=== PATIENT | male | born 1945 | race Caucasian/White ===

== ENCOUNTER 2024-12-08 06:40 | Day surgery (SDC) | payer MEDICARE, SELFPAY ==
[2024-12-08 08:20] VITALS: BMI 30.7
--- NOTE | 2024-12-08 10:16 | ITS.CL.CARDI ---
[employer] - Cardioversion
Cardioversion
Procedure Report:
Date of Procedure:
Procedure: Cardioversion
Indication: Symptomatic atrial fibrillation
Performing Physician: Daly Crespo MD
Technique: The patient was brought to the holding area. Signed informed consent was obtained. A time out was called and performed. The patient was anesthetized by the anesthesia service. Anticoagulation status was reviewed and appropriate. R2 pads
were placed anteriorly and posteriorly. A 200 J synchronized biphasic shock resulted in an initial 2:1 AV with HR in the 30's. This was followed by a marked sinus bradycardia with hypotension. Patient was administered 1 mg atropine. He subsequently
developed a junctional rhythm with HR in th 50's. His blood pressure remained steady while in the junctional rhythm. There were no complications.
Conclusion: S/P DCCV at 200 J with resultant junctional rhythm.
Recommendation: Discussed case with river rafting guide, Dr. Bach. Patient instructed to HOLD metoprolol and follow up in office later today for event monitor. Otherwise with follow routine post cardioversion care. Continue long lines operator anticoagulation.
== END 2024-12-08 10:19 | disposition home or self-care (01) ==
LOC: CATH 06:40
PROVIDERS: ATTENDING PHYSICIAN Internal Medicine Cardiovascular Disease; FAMILY PHYSICIAN Family Medicine
DX: I48.91 Unspecified atrial fibrillation (principal); I25.10 Atherosclerotic heart disease of native coronary artery without angina pectoris; E78.5 Hyperlipidemia, unspecified; Z79.01 Long term (current) use of anticoagulants; I10 Essential (primary) hypertension; R13.10 Dysphagia, unspecified
CPT/HCPCS: 92960; 93005

== ENCOUNTER 2024-12-11 17:03 | Inpatient (IN) | payer MEDICARE, SELFPAY ==
[2024-12-11] VITALS (9 sets, daily range): BP systolic 127–168; BP diastolic 68–93; BMI 30.2; BMI 29.7
--- NOTE | 2024-12-11 11:36 | ED.GENMED ---
History of Present Illness
General
Chief Complaint: Weakness
Time Seen by Provider: 12/11/24 11:36
History of Present Illness
History of Present Illness:
FOCUSED PAST MEDICAL HISTORY
- A-fib on Eliquis, high blood pressure, hyperlipidemia I reviewed records, the patient had a cardioversion for symptomatic A-fib
REVIEW OF OLD RECORDS
- I reviewed records, the patient had a cardioversion 12/08/2024 in which he went from A-fib to 2-1 block with heart rates in the 30s and was given atropine then went into a junctional rhythm with heart rate in the 50s
Note:
CHIEF COMPLAINT(S)
Post-cardioversion weakness, lower extremity swelling, and dyspnea on exertion.
HISTORY OF PRESENT ILLNESS
The patient is a 79-year-old male with a medical history significant for cardiac conditions and recent bullous pemphigoid diagnosis, presenting with weakness, bilateral lower extremity swelling, and shortness of breath on exertion following a
cardioversion procedure last . The patient reports feeling unwell immediately after discharge from the hospital. He began ex to periencing shaking and vomiting two days after the procedure. He also describes significant fatigue and weakness,
stating, 'All he wants to do is sleep,' and has difficulty with simple tasks like combing hair or putting on shoes due to breathlessness. The patient mentions using a walker for ambulation due to being easily fatigued, describing his breathlessness
when moving from the bedroom to the kitchen.
After the cardioversion, Dr. Crespo performed the procedure, which has led to worsened symptoms, particularly after discontinuation of furosemide on the dermatologists recommendation due to potential interactions with Dupilumab, which he is using
for bullous pemphigoid. The furosemide was stopped nearly two months prior to this visit. Since cessation, the patient reports worsening edema and increased swelling after the recent cardioversion, despite continuing spironolactone. The patient
notes he feels weak overall, stating, 'The whole body is weak,' and describes experiencing dry heaves and occasional crackling in his lungs, although the lungs sound fairly clear upon examination. The patients oxygen saturation is at 98%.
PHYSICAL EXAM
General: Alert, no acute distress. Moderate weakness noted.
Skin: Warm, dry, moderate findings of bullous pemphigoid with lesions noted on the anterior chest and possible burn component.
Head: Normocephalic, atraumatic.
Neck: Supple, trachea midline.
Eye Ears, nose, mouth and throat: Oral mucosa moist.
Cardiovascular: Normal peripheral perfusion, no edema. Regular rhythm
Respiratory: Respirations are non-labored. Occasional crackling heard upon examination.
Gastrointestinal: Abdomen nondistended.
Back: Normal range of motion, normal alignment.
Musculoskeletal: Significant left greater than right lower extremity edema
Psychiatric: Cooperative, appropriate mood and affect.
PROBLEM LIST
- Acute: Weakness, bilateral lower extremity edema, dyspnea on exertion, post-cardioversion symptoms.
- Chronic: Bullous pemphigoid.
PLAN
1. Obtain blood work to assess the patients current status post-cardioversion.
2. Conduct a chest X-ray to evaluate the respiratory symptoms and detect any potential pulmonary issues.
3. Investigate further the management of bullous pemphigoid and the potential interaction of medications affecting the patients condition.
4. Communicate with cardiology for follow-up, particularly to address the symptoms exacerbated by the cardioversion procedure. No immediate response with from Dr. Crespo.
DIFFERENTIAL DIAGNOSIS
The Differential Diagnosis includes, in no particular order and is not limited to:
1. Heart failure exacerbation
2. Adverse reaction post-cardioversion
3. Medication interaction effect
4. Chronic obstructive pulmonary disease (COPD) exacerbation
5. Pulmonary edema
6. Deep vein thrombosis leading to added swelling
7. Previous or ongoing myocardial infarction
8. Pneumonia or other respiratory infection
9. Peripheral vascular disease
10. Drug-induced edema
RADIOLOGY
- Suspect sinus 60 right axis deviation, right bundle branch block
EKG
- Suspect sinus, rate of 60, right bundle branch block unchanged from prior, prior EKG appears to be more consistent with junctional but appears to be sinus currently
LABS
- White count normal, hemoglobin 11.1, total bili 2.5, troponin 0.040 of uncertain significance, BNP 952 with no old to compare
UPDATE
- I sent message to Dr. Cortez was no initial response
SUMMARY OF ENCOUNTER
The patient, a 79-year-old male, presented with post-cardioversion symptoms including weakness, shaking, and dyspnea on exertion. He reports using a walker due to significant fatigue and breathlessness, stating that he can only walk short distances
before becoming unsteady. Currently on apixaban 5 mg twice daily for anticoagulation due to a history of pulmonary embolism. Despite excellent oxygen saturation levels at 99%, the patients family expresses concern about his ability to manage
independently at home due to these symptoms. A possible link between anxiety and shaking was discussed, though further evaluation is needed. Concerns about a history of bullous pemphigoid and an ongoing cardiac evaluation with a cardiac device were
also noted.
DISPOSITION
The patients family expressed a desire for hospital admission due to concerns about the patients ability to manage at home. It was noted that the decision for admission would involve discussing the case with the hospitalist to evaluate if inpatient
care was warranted.
ASSESSMENT
The patient is experiencing potential anxiety-related symptoms contributing to his shaking and dyspnea on exertion. His current medication regimen and excellent oxygen levels suggest low probability of a new thromboembolic event. The family is
concerned about his safety and ability to care for himself at home, prompting evaluation for possible admission.
MANAGEMENT OF THE PATIENTS CARE WAS DISCUSSED WITH
The case was proposed to be discussed with the hospitalist team to assess the need for hospitalization based on the current medical evaluation and family concerns.
PLAN
Review any records from the patients cardiology and dermatology teams that might provide further insight into his conditions. Discuss potential for admission with the hospitalist team given family concerns, despite current medical evaluation not
indicating immediate necessity.
MEDICATION RECONCILIATION
- Apixaban (Eliquis) 5 mg, taken twice daily.
MEDICAL DECISION MAKING
-Complexity of Data Reviewed: Chronic conditions affecting care [history of pulmonary embolism, bullous pemphigoid, and recent cardioversion]. Differential diagnosis considered includes heart failure exacerbation, adverse reaction
post-cardioversion, medication interaction effect, COPD exacerbation, pulmonary edema, deep vein thrombosis, ongoing myocardial infarction, respiratory infection, peripheral vascular disease, and drug-induced edema.
-Data:
Category 1
No external records were reviewed during this encounter. The patient reported on his use of a cardiac device purchased recently, though not yet operational.
Category 2
Information gathered from patients family regarding concerns about safety and ability of the patient to manage activities of daily living.
Category 3
Discussion with the hospitalist team was planned to determine the necessity of admission based on current medical evaluation and family concerns.
-Risk:
Prescription medication was already being managed for anticoagulation with apixaban (Eliquis). Safety of the patient at home is of concern, potentially influenced by social determinants of health including availability of family support and home
environment.
DIAGNOSIS
- Post cardioversion weakness and dyspnea (ICD-10: R53.1)
- Bullous pemphigoid (ICD-10: L12.0)
- Anxiety (unspecified) potentially contributing to symptoms (ICD-10: F41.9)
Consider discharge but is very adamant that he not be returned home. He reports severe shakiness with exertion to the point that he may fall. He has worsening lower extremity edema.
Phy Exam
Physical Exam
Physical Exam:
See HPI
Course
Orders/Labs/Results
Orders:
Orders
12/11/24 10:48
EKG [Electrocardiogram (*1)] Urgent
Reason for Study: Shortness of Breath
EKG- Treatment ONCE
12/11/24 11:58
Complete Blood Count/With Diff Urgent
Comprehensive Metabolic Panel Urgent
Lipase Urgent
NT-proBNP Urgent
Troponin I Urgent
12/11/24 12:05
CR Chest - 2 Views Urgent
Comment:
Reason For Exam: sob
12/11/24 13:49
Add On- LAB Urgent
Tests Added?: bnp
Abnormal Lab Results
12/11/24
11:58
RBC 3.62 L 10^6/uL
(4.70-6.10)
Hgb 11.1 L g/dL
(13.0-18.0)
Hct 34.4 L %
(39.0-52.0)
MCV 95.0 H fL
(80.0-94.0)
MCHC 32.3 L g/dL
(33.0-37.0)
RDW 17.3 H %
(11.5-14.5)
MPV 10.7 H fL
(7.4-10.4)
Total Bilirubin 2.5 H mg/dl
(0.2-1.3)
Troponin I 0.040 H* ng/ml
12/11/24 11:58
12/11/24 11:58
Vital Signs
Initial and Last Documented VS:
Initial Vital Signs
Temp Pulse Resp BP Pulse Ox
36.9 C 65 18 154/87 98
12/11/24 10:48 12/11/24 10:48 12/11/24 10:48 12/11/24 10:48 12/11/24 10:48
Last Documented Vital Signs
Temp Pulse Resp BP Pulse Ox
36.9 C 52 15 145/68 97
12/11/24 10:48 12/11/24 14:00 12/11/24 14:00 12/11/24 12:00 12/11/24 11:48
*Pulse Oximetry
SaO2: 98
Oxygen Mode of Delivery: Room air
Patient hypoxic: no
*Critical Care Note
Total Time (30-74mins, 75-104mins- exclusive of procedures): Not Applicable
ED Attending Note
-
Portions of this chart may have been created with voice recognition software.� Occasional wrong word or��sound alike� substitutions may have occurred due to the inherent limitations of voice recognition software.
Discharge Plan
Departure
Patient Disposition: Admit
Date of Disposition: 12/11/24
Time of Disposition: 13:47
Presentation/result/management discussed w/ accepting MD/DO: Hospitalist
Discharge Problem:
Weakness
Prescriptions:
No Action
amiodarone 200 mg Tablet
200 mg PO BID
leflunomide 10 mg Tablet
10 mg PO DAILY
spironolactone 25 mg Tablet
25 mg PO DAILY
dapsone 25 mg Tablet
25 mg PO DAILY
dapsone 25 mg Tablet
50 mg PO QPM
doxycycline hyclate 100 mg Tablet
100 mg PO BID
Eliquis 5 mg Tablet
5 mg PO BID
dapagliflozin propanediol [Farxiga] 10 mg Tablet
5 mg PO DAILY
dupilumab 300 mg/2 mL Pen Injector
300 mg SC QWEEK
Referrals:
Ajit Houston MD [Family Provider, Family Practice]
Interventions
Interventions:
*Risk Screen - Suicide Last Done: 12/11/24 10:48
*General Assessment Last Done: 12/11/24 10:48
*Neglect/Abuse Screening Last Done: 12/11/24 10:48
*ED- Fall Risk Assessment Last Done: 12/11/24 10:48
*ED COVID-19 Vaccine History Last Done: 12/11/24 10:48
*ED Influenza Vaccine History Last Done: 12/11/24 10:48
ED- Cardiac Assessment Last Done: 12/11/24 11:48
ED- Neurological Assessment Last Done: 12/11/24 11:48
ED- Pulmonary Assessment Last Done: 12/11/24 11:48
Discharge Date and Time
Print Language: MOLDOVAN
[2024-12-11 12:15] LABS: Hematocrit 34.4 % (39.0-52.0); Hemoglobin 11.1 g/dL (13.0-18.0); Mean Corp Hgb Conc. 32.3 g/dL (33.0-37.0); Mean Corpuscular Volume 95.0 fL (80.0-94.0); Nucleated Red Blood Cells % 0 % (-); Platelet Count 219 10^3/uL (130-400); Red Cell Dist. Width 17.3 % (11.5-14.5)
[2024-12-11 12:38] LABS: ALT (SGPT) 22 U/L (0-50); AST (SGOT) 31 U/L (17-59); Albumin 3.7 g/dl (3.5-5.0); Alkaline Phosphatase 120 U/L (38-126); Blood Urea Nitrogen 16 mg/dl (9-20); Calcium 9.2 mg/dl (8.4-10.2); Carbon Dioxide 25 mmol/L (22-30); Chloride 106 mmol/L (98-107); Estimated Creatinine Clearance 77 ml/min; Glucose 91 mg/dl (70-99); Lipase 121 U/L (23-300); Potassium 4.1 mmol/L (3.5-5.1); Sodium 135 mmol/L (135-145); Total Protein 6.5 g/dl (6.3-8.2); eGFR > 60.00
[2024-12-11 12:49] LABS: Troponin I 0.040 ng/ml
--- NOTE | 2024-12-11 13:56 | HPS.HSE ---
Addendum entered and electronically signed by Evelyne De La Garza MD 12/11/24 16:19:
This is an addendum to H&P written by Regulo Murdock on 12/11/2024. �Patient seen and examined independently with resident.
79-year-old male past medical history of CAD, atrial fibrillation on Eliquis status post recent cardioversion on 12/08, CHF, hypertension, hyperlipidemia, bullous pemphigoid, lumbar spondylosis, pulmonary embolism 5 years ago, presenting with
weakness, bilateral lower extremity swelling and shortness of breath following recent cardioversion on 12/08. �Associate with shakiness and vomiting, fatigue and weakness and dizziness and sleeping a lot. �Symptoms more so with exertion. �Also with
difficulty swallowing solids and food getting stuck in his throat. �Cardioversion was performed by Dr. Crespo.
Bullous pemphigoid is improved compared to previous at this time.
Lasix was stopped 2 months ago by recommendation of switchbox assembler due to interaction with dupilumab which he takes for bullous pemphigoid.
Patient had cardioversion on 12/08 and went into atrial fibrillation with 2-1 block with heart rate in the 30s followed by marked sinus bradycardia with hypotension. �Patient was given 1 mg of atropine and subsequently developed junctional rhythm
with heart rate in the 50s.
Vital signs unremarkable. �O2 saturation 98%.
Labs show hemoglobin 11.1. �Troponin of 0.04. �Cardiac BNP 950. �Chest x-ray shows no acute cardiopulmonary abnormality. �EKG shows wide QRS likely� from right bundle branch block which appears to be present from 12/08 (unknown if new) vs possible
junctional rhythm (although p waves likely present but poor quality due to possible shaking).�
Unclear etiology of symptoms, possibly could be secondary to ongoing junctional rythmn vs CHF as a result of cardioversion. �Cardiology consulted. �Check speech and swallow evaluation. �Patient reports that the bolus pemphigoid in the left lower
extremity has improved so doubt acute infection.�
Dysphagia could be esophageal spasm or nerve injury from cardioversion.�
Original Note:
Family Physician
-
Family Physician: Ajit Houston
Chief Complaint
-
Lower extremity swelling, dyspnea on exertion, weakness
History of Present Illness
79-year-old male with past medical history of paroxysmal A-fib s/p cardioversion 12/08/2024, essential hypertension, CHF, hyperlipidemia, bullous pemphigoid, DVT/PE, presenting to the ER reporting lower extremity swelling, dyspnea on exertion,
generalized weakness, dry heaves and has been ongoing for some time, and they have worsened the past couple of days. Patient is s/p cardioversion for A-fib, done on 12/08/[address] Crsepo. All the above symptoms have been accompanied by
nausea/vomiting, generalized weakness and he is not able to eat anything because of loss of appetite, episodes of lightheadedness/dizziness without loss of consciousness. He also had headaches.
Patient was diagnosed with bullous pemphigoid early May 2024, since then his furosemide was discontinued due to interaction with dupilumab. His metoprolol was also discontinued after cardioversion (had sinus bradycardia with hypotension and was
administered 1 mg atropine after the procedure), subsequently developed junctional rhythm with heart rates in 50s.
ED course�initial vital signs at presentation pulse�65, BP�150/87. Labs�normal white count, hemoglobin 11.1, total bili 2.5, troponin 0.040, BNP 952.
Medical History
Past Medical History
Past Medical History: Reports Other (Coronary artery disease, bullous pemphigoid, paroxysmal A-fib s/p cardioversion, spondylolisthesis, CHF)
Past Surgical History: Reports Other (Lumbar surgery,)
Social History
Tobacco: Non-smoker
Alcohol: None
Drug: None
Personal:
Living: With Family
Employment: Retired
Family History
Family History: Not pertinent
Allergies / Home Medications
Allergies reflects when Allergies were last updated in [employer]
Home Medications with original date entered in [employer]
Allergy/Medication List:
Allergies
Allergy/AdvReac Type Severity Reaction Status Date / Time
adhesive tape Allergy blisters Verified 12/11/24 10:47
furosemide Allergy nausea & Verified 12/11/24 10:47
vomiting
ibuprofen (From Advil) Allergy throat Verified 12/11/24 10:47
swelling
naproxen (From Aleve) Allergy throat Verified 12/11/24 10:47
swelling
Penicillins Allergy Itching Verified 12/11/24 10:47
Home Medications
amiodarone 200 mg tablet 200 mg PO BID 12/08/24
apixaban 5 mg tablet (Eliquis) 5 mg PO BID 12/08/24
dapagliflozin propanediol 10 mg tablet (Farxiga) 5 mg PO DAILY 12/08/24
dapsone 25 mg tablet 25 mg PO DAILY 12/08/24
dapsone 25 mg tablet 50 mg PO QPM 12/08/24
doxycycline hyclate 100 mg tablet 100 mg PO BID 12/08/24
dupilumab 300 mg/2 mL subcutaneous pen injector 300 mg SC QWEEK 12/08/24
leflunomide 10 mg tablet 10 mg PO DAILY 12/08/24
spironolactone 25 mg tablet 25 mg PO DAILY 12/08/24
Review of Systems
-
A 12 point ROS was completed and negative except as noted: Yes
Physical Exam
Vital Signs
Vital Signs
Temp Pulse Resp BP Pulse Ox
98.4 F 68 14 145/68 97
12/11/24 10:48 12/11/24 13:30 12/11/24 13:30 12/11/24 12:00 12/11/24 11:48
Physical Exam
General: No Apparent Distress
HEENT: NormoCephalic and Atraumatic
Respiratory: Clear
Cardiac: S1/S2 and Regular Rhythm; No Murmur
GI: Soft
Musculoskeletal: Edema, Left Lower Extremity and Edema, Right Lower Extremity
Skin: Warm and Other (Left lower extremity- chronic wounds, raw surface area from ruptured blisters and bullous pemphigoid, blistering lesions on the right lower extremity.)
Neuro: Awake, Alert, Oriented and AO x 3
Psych: Calm
Laboratory Results
-
12/11/24 11:58
12/11/24 11:58
Laboratory Results
Total Bilirubin 2.5 mg/dl (0.2-1.3) H 12/11/24 11:58
AST 31 U/L (17-59) 12/11/24 11:58
ALT 22 U/L (0-50) 12/11/24 11:58
Alkaline Phosphatase 120 U/L (38-126) 12/11/24 11:58
Troponin I 0.040 ng/ml H* 12/11/24 11:58
Lipase 121 U/L (23-300) 12/11/24 11:58
Impression/Plan
-
IMPRESSION:
79-year-old male presenting with worsening lower extremity edema, SOB, generalized weakness s/p cardioversion for A-fib on 12/08/2024
PLAN:
#SOB
#Worsening lower extremity edema
BNP�952, troponins�0.040
Vitals stable, patient on room air.
Patient appears volume overloaded , but lungs are clear
Etiology likely due to acute exacerbation of CHF versus arrhythmia versus post cardioversion complication.
Some of his symptoms like shortness of breath, tremors might also be related to anxiety from all his chronic conditions, as reported by the patient/ that were difficult to be managed at home.
Cardiology consulted
Will check echo
Will repeat EKG
Monitor I/os, weights
#CHF, acute on chronic
Patient is not on complete GDMT except for dapagliflozin, spironolactone
His metoprolol was discontinued after cardioversion, due to his low rate
Continue dapagliflozin, spironolactone
Consult cardiology
#Bullous pemphigoid
Continue dapsone
Continue doxycycline
Continue to dupilumab
Continue leflunomide
#Paroxysmal A-fib
S/p cardioversion
Continue amiodarone
Continue apixaban
Metoprolol on hold
#Dysphagia
Will do swallow evaluation
Patient has not been eating well, decreased appetite
Diet pending swallow evaluation
#Chronic wounds on the left lower extremity
From bullous pemphigoid
Wound care
#Chronic anemia
Will monitor for now
#Elevated troponin
Likely due to status post cardioversion
Diet�pending swallow evaluation
DVT prophylaxis�Eliquis
Full code
--- NOTE | 2024-12-11 18:20 | EDCM ---
CM reviewed chart and met with pt and family bedside in ED. Pt lives with his in 1 story home, [address].
Needs assistance with ADLs, independent in personal care, ambulates with RW.
Confirms prescription coverage.
Current with [facility] for wound care, has been to [facility], [facility] in past.
PCP: Ajit Houston
Pharmacy: [facility] [address] [place]
Await PT eval and recommendations, CM will continue to follow for all discharge planning needs.
[2024-12-11] MEDS: ELIQUIS 5 MG PO (20:33)
[2024-12-11] MEDS: PACERONE 200 MG PO (21:45)
[2024-12-11] MEDS: DAPSONE 50 MG PO (21:45)
[2024-12-11] MEDS: VIBRAMYCIN 100 MG PO (21:45)
[2024-12-12 03:18] VITALS: BP 130/56
[2024-12-12 06:00] VITALS: BMI 29.6
[2024-12-12 07:08] VITALS: BP 138/66
[2024-12-12] MEDS: ELIQUIS 5 MG PO ×2 (07:48→21:00)
[2024-12-12] MEDS: VIBRAMYCIN 100 MG PO ×2 (07:48→21:00)
[2024-12-12] MEDS: ALDACTONE 25 MG PO (07:49)
[2024-12-12] MEDS: FARXIGA 5 MG PO (07:49)
[2024-12-12] MEDS: PACERONE 200 MG PO ×2 (07:49→21:01)
[2024-12-12] MEDS: DAPSONE 25 MG PO (07:50)
[2024-12-12 09:17] LABS: Hematocrit 38.1 % (39.0-52.0); Hemoglobin 11.7 g/dL (13.0-18.0); Mean Corp Hgb Conc. 30.7 g/dL (33.0-37.0); Mean Corpuscular Volume 98.7 fL (80.0-94.0); Nucleated Red Blood Cells % 0.3 % (-); Platelet Count 211 10^3/uL (130-400); Red Cell Dist. Width 17.6 % (11.5-14.5)
[2024-12-12 10:04] LABS: ALT (SGPT) 22 U/L (0-50); AST (SGOT) 36 U/L (17-59); Albumin 3.8 g/dl (3.5-5.0); Alkaline Phosphatase 106 U/L (38-126); Blood Urea Nitrogen 14 mg/dl (9-20); Calcium 9.2 mg/dl (8.4-10.2); Carbon Dioxide 21 mmol/L (22-30); Chloride 107 mmol/L (98-107); Estimated Creatinine Clearance 77 ml/min; Glucose 106 mg/dl (70-99); Potassium 3.9 mmol/L (3.5-5.1); Sodium 136 mmol/L (135-145); Total Protein 6.5 g/dl (6.3-8.2); eGFR > 60.00
[2024-12-12 10:07] LABS: Troponin I 0.050 ng/ml
[2024-12-12 11:00] VITALS: BP 135/81
--- NOTE | 2024-12-12 14:03 | W.PN.HOSP.TC ---
Today's Communication/Plan
-
Monitor vital signs and see plan
Cardiology to evaluate
Speech evaluation
wound care
Assessment / Plan
Assessment / Plan
General: No Apparent Distress
HEENT: NormoCephalic and Atraumatic
Respiratory: Clear
Cardiac: S1/S2 and Regular Rhythm; No Murmur
GI: Soft
Musculoskeletal: Edema, Left Lower Extremity and Edema, Right Lower Extremity
Skin: Warm and Other (Left lower extremity- chronic wounds, raw surface area from ruptured blisters and bullous pemphigoid, blistering lesions on the right lower extremity.)
Neuro: Awake, Alert, Oriented and AO x 3
Psych: Calm
SOB
#Worsening lower extremity edema
BNP�952, troponins�0.040
Vitals stable, patient on room air.
Patient appears volume overloaded , but lungs are clear
Etiology likely due to arrhythmia versus post cardioversion complication.
Some of his symptoms like shortness of breath, tremors might also be related to anxiety from all his chronic conditions, as reported by the patient/ that were difficult to be managed at home.
Cardiology consulted
check echo
Monitor I/os, weights
#CHF, chronic
Patient is not on complete GDMT except for dapagliflozin, spironolactone
His metoprolol was discontinued after cardioversion, due to his low rate
Continue dapagliflozin, spironolactone
Consult cardiology
#Bullous pemphigoid
Continue dapsone
Continue doxycycline
Continue to dupilumab
Continue leflunomide
#Paroxysmal A-fib
S/p cardioversion
Continue amiodarone
Continue apixaban
Metoprolol on hold
#Dysphagia
Speech evaluation
Patient has not been eating well, decreased appetite
#Chronic wounds on the left lower extremity
From bullous pemphigoid
Wound care
#Chronic anemia
Will monitor for now
#Elevated troponin likely nonischemic myocardial injury
Likely due to status post cardioversion
DVT prophylaxis�Eliquis
Full code
I spent a total of 52 minutes with the patient or on the floor. More than 50% of this time involved counseling and coordination of care.
Anticipated Discharge: 24 - 48 hours
Subjective/Interval History
-
Date of Service: December 12, 2024
denies pain
Objective Data
-
Labs:
Laboratory Results
12/12/24
09:08
WBC 6.6
Hgb 11.7 L
Hct 38.1 L
Plt Count 211
Sodium 136
Potassium 3.9
Chloride 107
Carbon Dioxide 21 L
BUN 14
Creatinine 0.9
Glucose 106 H
Calcium 9.2
Total Bilirubin 2.3 H
AST 36
ALT 22
Alkaline Phosphatase 106
Vital Signs:
Vital Signs
Temp Pulse Resp BP Pulse Ox
98.2 F 118 16 135/81 98
12/12/24 11:00 12/12/24 11:00 12/12/24 11:00 12/12/24 11:00 12/12/24 11:00
--- NOTE | 2024-12-12 15:41 | CON.CAR ---
Addendum entered and electronically signed by Laila Randolph DO 12/12/24 21:43:
I saw and examined the patient.
The Sulky Driver's note was reviewed and I agree with the note.
Comment: Patient came to the ER with complaints of increasing SOB and was admitted with acute HF with cardiology consulted. Patient just had a successful outpatient CV for paroxysmal A-fib with yazdanism of SR on 12/08/2024. Patient has Bullous
pemphigoid with slowly healing LLE wound receiving wound care and followed by [facility]. Patient is not chronically on a diuretic. Patient says that despite yazdanism of sinus rhythm he never had a symptomatic improvement and then started
with shaking type chills and vomiting this past weekend and fatigue. He has been compliant with Eliquis and denies bleeding or falls on OAC. raised concerns about increased anxiety Ed has about hs health issues.
General: No acute distress, AAOX3
Heart: irregularly irregular, positive S1/S2, 1/6 SM
Lungs: Bronchovesicular breath sounds decreased but clear
Abd: Positive BS, NT/ND, neg rebound/rigidity/guarding
Ext: Chronic venous stasis changes. Left lower extremity with Bullous pemphigoid changes
Plan:
79-year-old gentleman with ongoing fatigue/weakness who reports months of shaking chills without fever, lightheadedness and shortness of breath as well as ambulatory dysfunction
-he has a history of atrial fibrillation underwent DC cardioversion 12/05/2024.
-It appears that he is back in atrial fibrillation. Will continue uninterrupted anticoagulation and new start amiodarone
-Check 2D echocardiogram
-proBNP mildly elevated at 952; will try small dose of Bumex as patient reports history of nausea with furosemide
-Monitor blood pressure trends and check orthostatic vitals
-Mildly abnormal cardiac troponin likely related to recent cardioversion; doubt ACS. However given risk factors patient may benefit from outpatient ischemic evaluation
-PT OT
-Wound care consulted
Original Note:
Consultation
Consultation Request
Date/Time Consultation Performed: 12/12/2024
Requesting Provider: Dr. Busby
Performing Provider: Dr. Randolph
Reason for Consultation: Acute HF, orthostasis
Medical History
-
History of Present Illness:
Patient came to the ER with complaints of increasing SOB and was admitted with acute HF with cardiology consulted. Patient just had a successful outpatient CV for paroxysmal A-fib with yazdanism of SR on 12/08/2024. Patient had increased LE
edema when he was seen in the cardiology office on 12/05/2024. Patient is not chronically on a diuretic. Patient says that despite yazdanism of sinus rhythm he never had a symptomatic improvement and then started with shaking type chills and
vomiting this past weekend and fatigue. He came to the ER with ongoing symptoms and the proBNP was only 952 without obvious CHF on CXR, but LE edema persists. No previous echo.
PMH:
Paroxysmal atrial fibrillation
s/p successful CV 12/08/2024
Appears to be back in A-fib by ECG 12/12/2024
Chronic Eliquis OAC
Bullous pemphigoid with slowly healing LLE wound
Past Medical History
Past Medical History: Other (In HPI)
Past Surgical History: Other (In HPI)
Social History
Tobacco: Former Smoker
Alcohol: Occasional
Drug: None
Personal:
Living: With Family
Family History
Family History: Other (CVA)
Allergies / Home Medications
Allergy/AdvReac Type Severity Reaction Status Date / Time
adhesive tape Allergy blisters Verified 12/11/24 10:47
furosemide Allergy nausea & Verified 12/11/24 10:47
vomiting
ibuprofen (From Advil) Allergy throat Verified 12/11/24 10:47
swelling
naproxen (From Aleve) Allergy throat Verified 12/11/24 10:47
swelling
Penicillins Allergy Itching Verified 12/11/24 10:47
�Medication �Instructions �Recorded �Confirmed �Type
amiodarone 200 mg tablet 200 mg PO BID Heart 12/08/24 12/11/24 History
Disease/Condition
apixaban 5 mg tablet (Eliquis) 5 mg PO BID Blood Clot 12/08/24 12/11/24 History
Prevention/Tx
dapagliflozin propanediol 10 mg 5 mg PO DAILY Diabetes 12/08/24 12/11/24 History
tablet (Farxiga)
dapsone 25 mg tablet 25 mg PO DAILY Infection 12/08/24 12/11/24 History
dapsone 25 mg tablet 50 mg PO QPM Infection 12/08/24 12/11/24 History
doxycycline hyclate 100 mg tablet 100 mg PO BID Infection 12/08/24 12/11/24 History
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
pen injector disorder
leflunomide 10 mg tablet 10 mg PO DAILY autoimmune skin 12/08/24 12/11/24 History
disorder
spironolactone 25 mg tablet 25 mg PO DAILY 12/08/24 12/11/24 History
Review of Systems
-
History Source: Patient and Family (Most of the HPI questions were answered by his who is sitting bedside)
All other systems: Negative unless noted
Physical Exam
Vital Signs
Temp Pulse Resp BP Pulse Ox
98.2 F 118 16 135/81 98
12/12/24 11:00 12/12/24 11:00 12/12/24 11:00 12/12/24 11:00 12/12/24 11:00
GEN: NAD, AAO x 3
HEENT: EOMI, MMM
LUNGS: RA. CTA B/L no audible wheeze
CV: A-fib on telemetry. Irreg, S1/S2, no murmur
ABD: ND
EXT: +2 B/L LE edema
NEURO: Gross non-focal
SKIN: No rash
Lab Results
12/12/24 09:08
12/12/24 09:08
Troponin I 0.050 ng/ml H* 12/12/24 09:33
[id number] Pept 952 pg/ml 12/11/24 11:58
Impression / Plan
-
PCP: Dr. Ajit Houston
Cardiology: Dr. Bach
Impression:
Admitted with SOB and possible acute HF 12/11/2024
Elevated troponin
Acute HFpEF
Paroxysmal atrial fibrillation
s/p successful CV 12/08/2024
Appears to be back in A-fib by ECG 12/12/2024
Chronic Eliquis OAC
Bullous pemphigoid with slowly healing LLE wound
Echo 12/12/2024: Study pending
Plan:
Patient came to the ER with complaints of increasing SOB and was admitted with acute HF with cardiology consulted. Patient just had a successful outpatient CV for paroxysmal A-fib with yazdanism of SR on 12/08/2024. Patient had increased LE
edema when he was seen in the cardiology office on 12/05/2024. Patient is not chronically on a diuretic. Patient says that despite yazdanism of sinus rhythm he never had a symptomatic improvement and then started with shaking type chills and
vomiting this past weekend and fatigue. He came to the ER with ongoing symptoms and the proBNP was only 952 without obvious CHF on CXR, but LE edema persists. No previous echo.
-ECG reviewed by me looks like A-fib
-Patient admitted with suspected acute HF, but no evidence of diuresis thus far. Will try dose of Bumex 0.5 mg IV x 1 now, patient reports an allergy to furosemide of nausea and vomit. Patient was not taking loop diuretic prior to admission.
Pending diuretic response will order a daily dose of Lasix IV starting 12/13/2024
-Patient has been normotensive thus far
-Check echo
-Pending results of echo and diuresis patient should be started on a more intensive GDMT regimen for CHF
-Initial troponin was 0.04 and then up a bit at 0.05. Recheck troponin in a.m., ordered by me. This could be due to acute HF and recent CV, will manage as a nonischemic myocardial injury troponin elevation.
-ECG looks like A-fib despite recent successful CV and ongoing AAD with amiodarone 200 mg BID. Patient describes feeling worse following CV. Continue amiodarone as is for now
-Continue Eliquis 5 mg BID without interruption given recent CV
-The wound care nurse has been consulted for his LLE wound
-PT/OT ordered by me
[2024-12-12] MEDS: DAPSONE 50 MG PO (17:00)
[2024-12-12] MEDS: BUMEX 0.5 MG IV (17:00)
[2024-12-12 17:18] VITALS: BP 123/79
[2024-12-12 23:33] VITALS: BP 104/71
[2024-12-13] VITALS (7 sets, daily range): BP systolic 99–155; BP diastolic 64–99; PULSE 114–118; O2SAT 98
[2024-12-13] MEDS: FARXIGA 5 MG PO (07:56)
[2024-12-13] MEDS: ALDACTONE 25 MG PO (07:57)
[2024-12-13] MEDS: VIBRAMYCIN 100 MG PO ×2 (07:57→20:33)
[2024-12-13] MEDS: PACERONE 200 MG PO ×2 (07:58→20:37)
[2024-12-13] MEDS: ELIQUIS 5 MG PO ×2 (07:58→20:33)
[2024-12-13] MEDS: DAPSONE 25 MG PO (07:58)
[2024-12-13 08:40] LABS: Hematocrit 37.6 % (39.0-52.0); Hemoglobin 12.5 g/dL (13.0-18.0); Mean Corp Hgb Conc. 33.2 g/dL (33.0-37.0); Mean Corpuscular Volume 94.9 fL (80.0-94.0); Nucleated Red Blood Cells % 0 % (-); Platelet Count 232 10^3/uL (130-400); Red Cell Dist. Width 17.4 % (11.5-14.5)
[2024-12-13 09:09] LABS: Troponin I 0.038 ng/ml
[2024-12-13 09:45] LABS: ALT (SGPT) 24 U/L (0-50); AST (SGOT) 35 U/L (17-59); Albumin 3.8 g/dl (3.5-5.0); Alkaline Phosphatase 122 U/L (38-126); Blood Urea Nitrogen 13 mg/dl (9-20); Calcium 9.2 mg/dl (8.4-10.2); Carbon Dioxide 21 mmol/L (22-30); Chloride 107 mmol/L (98-107); Estimated Creatinine Clearance 70 ml/min; Glucose 139 mg/dl (70-99); Potassium 4.1 mmol/L (3.5-5.1); Sodium 136 mmol/L (135-145); Total Protein 6.6 g/dl (6.3-8.2); eGFR > 60.00
--- NOTE | 2024-12-13 12:42 | WOUNDNOTE ---
L MEDIAL LOWER LEG
--- NOTE | 2024-12-13 12:43 | WOUNDNOTE ---
L MEDIAL LOWER LEG BLISTER
--- NOTE | 2024-12-13 12:44 | WOUNDNOTE ---
L LATERAL LOWER LEG
--- NOTE | 2024-12-13 12:45 | WOUNDNOTE ---
[facility] RN note: Patient admitted with weakness.
See H&P for complete history. Lives with at home.
PMH: 79-year-old male past medical history of CAD, atrial fibrillation on Eliquis status post recent cardioversion on 12/08, CHF, hypertension, hyperlipidemia, bullous pemphigoid, lumbar spondylosis, pulmonary embolism 5 years ago, presenting with
weakness, bilateral lower extremity swelling and shortness of breath following recent cardioversion.
Wound Location and type/assessment: Patient admitted with: skin tears on chest and back, pink base and moist. Patient and at bedside state they occurred when electrodes removed last admission. Scattered healed bullous pemphigoid scarring on
upper back, chest, arms and legs. L lower leg and R dorsal foot with few intact serous blisters. L leg with edema, weeping distally and scattered dry flaky skin/old dry blisters. Patient able to ambulate to BR with walker and elevate legs on chair.
L leg very painful upon palpation, unable to tolerate compression at this time. Patient states he wears a compression sock on R leg daily. reports they follow with Dr. Henao at [facility] who is a specialist for BP. Reviewed current treatment
with . Sacrum and heels are intact.
Appetite: Good.
Pressure redistribution devices in place: Accumax, turns self and is ad christian with walker.
Plan: Cleaned L leg with Vashe, applied Xeroform to blisters on back of leg and anterior leg, ABD pad and kerlix. Moisturized legs with Vaseline. Will order mineral oil to use on legs and skin tears on chest and back daily.
Will confirm orders with hospitalist and updated nurse Denis. Supplies ordered from [facility] and are at bedside.
Updated care plan and will follow as needed.
Note to case management of equipment requested for discharge: None.
Recommend follow up at [facility] as scheduled.
--- NOTE | 2024-12-13 12:46 | WOUNDNOTE ---
[facility] RN note: Patient admitted with weakness.
See H&P for complete history. Lives with at home.
PMH: 79-year-old male past medical history of CAD, atrial fibrillation on Eliquis status post recent cardioversion on 12/08, CHF, hypertension, hyperlipidemia, bullous pemphigoid, lumbar spondylosis, pulmonary embolism 5 years ago, presenting with
weakness, bilateral lower extremity swelling and shortness of breath following recent cardioversion.
Wound Location and type/assessment: Patient admitted with: skin tears on chest and back, pink base and moist. Patient and at bedside state they occurred when electrodes removed last admission. Scattered healed bullous pemphigoid scarring on
upper back, chest, arms and legs. L lower leg and R dorsal foot with few intact serous blisters. L leg with edema, weeping distally and scattered dry flaky skin/old dry blisters. Patient able to ambulate to BR with walker and elevate legs on chair.
L leg very painful upon palpation, unable to tolerate compression at this time. Patient states he wears a compression sock on R leg daily. reports they follow with Quality Consultant Dr. Lynn at [facility] who is a specialist for BP. Reviewed
current treatment with . Sacrum and heels are intact.
Appetite: Good.
Pressure redistribution devices in place: Accumax, turns self and is ad christian with walker.
Plan: Cleaned L leg with Vashe, applied Xeroform to blisters on back of leg and anterior leg, ABD pad and kerlix. Moisturized legs with Vaseline. Will order mineral oil to use on legs and skin tears on chest and back daily.
Will confirm orders with hospitalist and updated nurse Denis. Supplies ordered from [facility] and are at bedside.
Updated care plan and will follow as needed.
Note to case management of equipment requested for discharge: None.
Recommend follow up with Quality Consultant Dr. Lynn at [facility] as scheduled.
--- NOTE | 2024-12-13 13:34 | W.PN.HOSP.TC ---
Today's Communication/Plan
-
Monitor vital signs and see plan
Cardiology to see today
Continue amiodarone
PT
Assessment / Plan
Assessment / Plan
General: No Apparent Distress
HEENT: NormoCephalic and Atraumatic
Respiratory: Clear
Cardiac: S1/S2 and Regular Rhythm; No Murmur
GI: Soft
Musculoskeletal: Edema, Left Lower Extremity and Edema, Right Lower Extremity
Skin: Warm and Other (Left lower extremity- chronic wounds, raw surface area from ruptured blisters and bullous pemphigoid, blistering lesions on the right lower extremity.)
Neuro: Awake, Alert, Oriented and AO x 3
Psych: Calm
SOB
#Worsening lower extremity edema
BNP�952, troponins�0.040
Vitals stable, patient on room air.
Does not appear to be overtly volume overloaded
Etiology likely due to arrhythmia versus post cardioversion complication.
Some of his symptoms like shortness of breath, tremors might also be related to anxiety from all his chronic conditions, as reported by the patient/ that were difficult to be managed at home.
Cardiology following
Echo 12/12 with EF 60%, moderate LVH
Monitor I/os, weights
#CHF, chronic
Patient is not on complete GDMT except for dapagliflozin, spironolactone
His metoprolol was discontinued after cardioversion, due to his low rate
Continue dapagliflozin, spironolactone
Cardiology following
#Bullous pemphigoid
Continue dapsone
Continue doxycycline
Continue to dupilumab
Continue leflunomide
#Paroxysmal A-fib
S/p cardioversion, went back into A-fib
Continue amiodarone
Continue apixaban
Metoprolol on hold
#Dysphagia
Speech evaluation
Patient has not been eating well, decreased appetite
#Chronic wounds on the left lower extremity
From bullous pemphigoid
Wound care
#Chronic anemia
Will monitor for now
#Elevated troponin likely nonischemic myocardial injury
Likely due to status post cardioversion
DVT prophylaxis�Eliquis
Full code
Anticipated Discharge: Within 24 hours
Subjective/Interval History
-
Date of Service: December 13, 2024
denies pain
Objective Data
-
Labs:
Laboratory Results
12/13/24
08:27
WBC 6.9
Hgb 12.5 L
Hct 37.6 L
Plt Count 232
Sodium 136
Potassium 4.1
Chloride 107
Carbon Dioxide 21 L
BUN 13
Creatinine 1.0
Glucose 139 H
Calcium 9.2
Total Bilirubin 1.6 H
AST 35
ALT 24
Alkaline Phosphatase 122
Vital Signs:
Vital Signs
Temp Pulse Resp BP Pulse Ox
97.4 F 91 18 149/99 95
12/13/24 12:03 12/13/24 12:03 12/13/24 12:03 12/13/24 12:03 12/13/24 12:03
I&O
12/12/24 12/13/24 12/14/24
06:59 06:59 06:59
Intake Total 1560 / 1560
Balance 1560 / 1560
--- NOTE | 2024-12-13 14:07 | CM ---
Chart reviewed and plan is to home with spouse and [facility] visiting nurses.
Plan; Home with spouse and [facility] visiting nurses.
[facility]
[2024-12-13] MEDS: DAPSONE 50 MG PO (17:00)
--- NOTE | 2024-12-13 18:53 | W.PN.CARDCBS ---
Today's Communication / Plan
-
Ventricular rates remain poorly controlled. Will add Toprol 25 mg daily. Continue amiodarone.
Would hold on diuresis for now. Little improvement with Bumex and proBNP relatively normal. LVEF is preserved
Will discuss with outpatient child development professor regarding plan. Options would include repeat cardioversion on amiodarone or consideration for a rate control strategy and ablation.
Continue Eliquis.
Discussed at length with patient and at bedside
Impression / Plan
-
PCP: Dr. Ajit Houston
Cardiology: Dr. Bach
Impression:
Admitted with SOB and possible acute HF 12/11/2024
Elevated troponin
Acute HFpEF
Paroxysmal atrial fibrillation
s/p successful CV 12/08/2024
Appears to be back in A-fib by ECG 12/12/2024
Chronic Eliquis OAC
Bullous pemphigoid with slowly healing LLE wound
Echo 12/12/2024: EF 60% with mild AI, mild MR with PA pressure 25
Plan:
Patient came to the ER with complaints of increasing SOB and was admitted with acute HF with cardiology consulted. Patient just had a successful outpatient CV for paroxysmal A-fib with pentecostalism of SR on 12/08/2024. Patient had increased LE
edema when he was seen in the cardiology office on 12/05/2024. Patient is not chronically on a diuretic. Patient says that despite pentecostalism of sinus rhythm he never had a symptomatic improvement and then started with shaking type chills and
vomiting this past weekend and fatigue. He came to the ER with ongoing symptoms and the proBNP was only 952 without obvious CHF on CXR, but LE edema persists. No previous echo.
-He remains in A-fib and remains poorly controlled. Will add Toprol 25 mg daily to try to help with rate control. Will discuss with his primary child development professor. Other options include a repeat cardioversion versus consideration for ablation.
-He remains short of breath. proBNP was normal. He was given a dose of diuresis with little improvement. Would hold on diuresis for today.
-Patient has been normotensive thus far
-Check echo
-Pending results of echo and diuresis patient should be started on a more intensive GDMT regimen for CHF
-Initial troponin was 0.04 and then up a bit at 0.05. Recheck troponin in a.m., ordered by me. This could be due to acute HF and recent CV, will manage as a nonischemic myocardial injury troponin elevation.
-Continue Eliquis 5 mg BID without interruption given recent CV
-The wound care nurse has been consulted for his LLE wound
Progress Note - Editing Clerk
Subjective
Date of Service: December 13, 2024
Feels poorly. Ventricular rates remain poorly controlled.
Objective
Labs:
12/13/24 08:27
12/13/24 08:27
Labs
Hgb 12.5 g/dL (13.0-18.0) L 12/13/24 08:27
Hct 37.6 % (39.0-52.0) L 12/13/24 08:27
Plt Count 232 10^3/uL (130-400) 12/13/24 08:27
Sodium 136 mmol/L (135-145) 12/13/24 08:27
Potassium 4.1 mmol/L (3.5-5.1) 12/13/24 08:27
BUN 13 mg/dl (9-20) 12/13/24 08:27
Creatinine 1.0 mg/dL (0.7-1.3) 12/13/24 08:27
Glucose 139 mg/dl (70-99) H 12/13/24 08:27
Troponins
12/11/24 12/12/24 12/13/24
11:58 09:33 08:27
Troponin I 0.040 H* 0.050 H* 0.038 H*
Vital Signs and I&O:
Vital Signs
Temp Pulse Resp BP Pulse Ox
98.5 F 114 22 103/68 97
12/13/24 14:58 12/13/24 14:58 12/13/24 14:58 12/13/24 14:58 12/13/24 14:58
Vital Signs
Temp Pulse Resp BP Pulse Ox
98.5 F 114 22 103/68 97
12/13/24 14:58 12/13/24 14:58 12/13/24 14:58 12/13/24 14:58 12/13/24 14:58
Intake & Output
12/11/24 12/12/24 12/13/24 12/14/24
05:59 06:59 06:59 06:59
Intake Total 1560 / 1560 1440 / 1440
Balance 1560 / 1560 1440 / 1440
Physical Exam
Physical Exam
GEN: No distress, awake, Ox3
HEENT: supple, anicteric, mmm
LUNGS: CTA, no wheezes/rales
CV: Irreg, S1/S2, 1/6 syst LSB, no gallop
ABD: soft, BS+, NT/ND
EXT: No edema
NEURO: Gross non-focal
SKIN: No rash
[2024-12-13] MEDS: TOPROL XL 25 MG PO (20:33)
[2024-12-14 03:13] VITALS: BP 124/72
[2024-12-14 05:48] VITALS: BMI 30.4
[2024-12-14 08:00] VITALS: BP 119/80
[2024-12-14 08:43] LABS: Hematocrit 38.2 % (39.0-52.0); Hemoglobin 12.6 g/dL (13.0-18.0); Mean Corp Hgb Conc. 33.0 g/dL (33.0-37.0); Mean Corpuscular Volume 96.2 fL (80.0-94.0); Nucleated Red Blood Cells % 0 % (-); Platelet Count 239 10^3/uL (130-400); Red Cell Dist. Width 17.4 % (11.5-14.5)
[2024-12-14 09:12] LABS: ALT (SGPT) 23 U/L (0-50); AST (SGOT) 32 U/L (17-59); Albumin 3.9 g/dl (3.5-5.0); Alkaline Phosphatase 123 U/L (38-126); Blood Urea Nitrogen 17 mg/dl (9-20); Calcium 9.1 mg/dl (8.4-10.2); Carbon Dioxide 24 mmol/L (22-30); Chloride 106 mmol/L (98-107); Estimated Creatinine Clearance 71 ml/min; Glucose 105 mg/dl (70-99); Potassium 4.3 mmol/L (3.5-5.1); Sodium 137 mmol/L (135-145); Total Protein 6.5 g/dl (6.3-8.2); eGFR > 60.00
[2024-12-14] MEDS: PACERONE 200 MG PO (09:31)
[2024-12-14] MEDS: ELIQUIS 5 MG PO ×2 (09:33→20:58)
[2024-12-14] MEDS: DAPSONE 25 MG PO (09:34)
[2024-12-14] MEDS: VIBRAMYCIN 100 MG PO ×2 (09:34→20:58)
[2024-12-14] MEDS: FARXIGA 5 MG PO (09:34)
[2024-12-14] MEDS: TOPROL XL 25 MG PO ×2 (09:34→20:58)
[2024-12-14] MEDS: ALDACTONE 25 MG PO (09:35)
[2024-12-14] MEDS: HYDROPHOR 1 APPLIC TOPICAL (09:37)
--- NOTE | 2024-12-14 10:13 | W.PN.CARDCBS ---
Addendum entered and electronically signed by Doe Moreno MD 12/14/24 13:24:
I saw and examined the patient.
The Plant Quality Manager's note was reviewed and I agree with the note.
Comment:
GEN: No distress, awake, Ox3
HEENT: supple, anicteric, mmm
LUNGS: CTA, no wheezes/rales
CV: irreg, S1/S2, 1/6 syst LSB, no murmur
ABD: soft, BS+, NT/ND
EXT: trace edema
NEURO: Gross non-focal
SKIN: marke erythema/lesion
Plan:
He remains in poorly controlled atrial fibrillation. Will increase Toprol to 25 mg twice daily. Continue amiodarone.
proBNP is elevated. Will diurese with IV Bumex.
I again discussed treatment options with them at length. Will ask electrophysiology to evaluate regarding possible PVI or's other ablate and pace strategies. They are very hesitant to pursue a second cardioversion due to his skin issues. I am
also not sure whether he would tolerate a pacemaker with his skin issues.
Continue antibiotics and treatment for his bullous pemphigoid
Original Note:
Today's Communication / Plan
-
Patient and have decided that they would like to pursue ablate and pace strategy, they have specifically said they do not want another attempt at CV and they do not want an attempt at PVI, will need to hear from EP regarding possible
complications with his bullous pemphigoid
Weight is trending up, but proBNP was low on admission, recheck now and if trending up will try another dose of Bumex IV
Impression / Plan
-
PCP: Dr. Ajit Houston
Cardiology: Dr. Bach
Impression:
Admitted with SOB and possible acute HF 12/11/2024
Elevated troponin
Possible acute HFpEF
Paroxysmal to persistent atrial fibrillation
s/p successful CV 12/08/2024
Appears to be back in A-fib by ECG 12/12/2024
Chronic Eliquis OAC
Bullous pemphigoid with slowly healing LLE wound
Echo 12/12/2024: EF 60% with mild AI, mild MR with PA pressure 25
Plan:
-Telemetry reviewed by me and patient remains in persistent A-fib with HR is generally less than 100. Outpatient dose of amiodarone 200 mg BID has been continued.
-ECG from 12/13/2024 reviewed by me showed QTc 510 ms in the setting of rapid A-fib with RBBB. Recheck ECG on 12/15/2024, orders placed by me
-Prior to admission the patient had been taking Toprol-XL at a dose as high as 50 mg daily, but this was stopped by his primary associate director finance due to bradycardia in the office. Cardiology restarted Toprol-XL 25 mg daily on 12/13/2024 and no
significant bradycardia or pauses. Will increase Toprol-XL to 25 mg BID on 12/14/2024 for additional help with HR control.
-Talked with patient and in the room on 12/14/2024 about options for rhythm control moving forward including another attempt at CV vs consideration for PVI ablation vs ablate and pace. Patient and do not want another CV and they are not
interested in PVI, they wish to proceed with ablate and pace. We reviewed the patient's underlying bullous pemphigoid that is overall improving on outpatient dupilumab treatment, but he continues with lesions including a slowly healing LLE wound.
Will need to review with EP to see if the patient needs to be quoted additional risks or infection or poor wound healing based on this history.
-There was concern for possible acute HFpEF on admission given symptoms of DOTY, the proBNP was only 952 and CXR was unremarkable. Patient was given a single dose of Bumex 0.5 mg IV times evening without subjective improvement. Review of
VS shows that daily weight on standing scale is slowly increasing. Recheck proBNP and if higher then consider additional Bumex IV, but if otherwise stable suspect his DOTY is a symptom of his A-fib. Patient was not taking a diuretic prior to
admission.
-Troponin peaked at 0.05 and is managed as a nonischemic myocardial injury troponin elevation, he never had chest pain, no ischemic changes on ECG and echo showed no WMA
HPI: Patient came to the ER with complaints of increasing SOB and was admitted with acute HF with cardiology consulted. Patient just had a successful outpatient CV for paroxysmal A-fib with episcopalian of SR on 12/08/2024. Patient had increased LE
edema when he was seen in the cardiology office on 12/05/2024. Patient is not chronically on a diuretic. Patient says that despite episcopalian of sinus rhythm he never had a symptomatic improvement and then started with shaking type chills and
vomiting this past weekend and fatigue. He came to the ER with ongoing symptoms and the proBNP was only 952 without obvious CHF on CXR, but LE edema persists. No previous echo.
Progress Note - Construction Operations Manager
Subjective
Date of Service: December 14, 2024
He has ongoing DOTY that has not improved since admission
Objective
Labs:
12/14/24 08:16
12/14/24 08:16
Labs
Hgb 12.6 g/dL (13.0-18.0) L 12/14/24 08:16
Hct 38.2 % (39.0-52.0) L 12/14/24 08:16
Plt Count 239 10^3/uL (130-400) 12/14/24 08:16
Sodium 137 mmol/L (135-145) 12/14/24 08:16
Potassium 4.3 mmol/L (3.5-5.1) 12/14/24 08:16
BUN 17 mg/dl (9-20) 12/14/24 08:16
Creatinine 1.1 mg/dL (0.7-1.3) 12/14/24 08:16
Glucose 105 mg/dl (70-99) H 12/14/24 08:16
Troponins
12/11/24 12/12/24 12/13/24
11:58 09:33 08:27
Troponin I 0.040 H* 0.050 H* 0.038 H*
Vital Signs and I&O:
Vital Signs
Temp Pulse Resp BP Pulse Ox
98.1 F 82 18 119/80 95
12/14/24 08:00 12/14/24 08:00 12/14/24 08:00 12/14/24 08:00 12/14/24 08:00
Vital Signs
Temp Pulse Resp BP Pulse Ox
98.1 F 82 18 119/80 95
12/14/24 08:00 12/14/24 08:00 12/14/24 08:00 12/14/24 08:00 12/14/24 08:00
Intake & Output
12/12/24 12/13/24 12/14/24 12/15/24
06:59 06:59 06:59 06:59
Intake Total 1560 / 1560 1560 / 1560
Balance 1560 / 1560 1560 / 1560
Physical Exam
Physical Exam
GEN: NAD, AAO x 3
LUNGS: RA. No audible wheeze
CV: A-fib on telemetry.
EXT: + 1 B/L LE edema. LLE wound dressing in place without malodor
NEURO: Gross non-focal
SKIN: No rash
[2024-12-14 12:45] VITALS: BP 116/73
--- NOTE | 2024-12-14 12:49 | CM ---
manager fine reviewed patient's chart and physical therapy are recommending home with home health at discharge, pillowcase cleaner spoke with patient's spouse at bedside and she would like patient evaluated for acute rehab.
Plan: To follow with patient progress.
[2024-12-14] MEDS: NON-FORMULARY ITEM 10 MG PO (13:41)
[2024-12-14] MEDS: BUMEX 0.5 MG IV (13:43)
[2024-12-14] MEDS: FLUSH (NSS) 1 FLUSH IV (13:46)
--- NOTE | 2024-12-14 13:59 | W.PN.HOSP.TC ---
Today's Communication/Plan
-
Monitor vitals
See plan
EP to evaluate
Started IV Bumex
Monitor volume status
Metoprolol
Discussed with spouse
Assessment / Plan
Assessment / Plan
General: No Apparent Distress
HEENT: NormoCephalic and Atraumatic
Respiratory: Clear
Cardiac: S1/S2 and Regular Rhythm; No Murmur
GI: Soft
Musculoskeletal: Edema, Left Lower Extremity and Edema, Right Lower Extremity
Skin: Warm and Other (Left lower extremity- chronic wounds, raw surface area from ruptured blisters and bullous pemphigoid, blistering lesions on the right lower extremity.)
Neuro: Awake, Alert, Oriented and AO x 3
Psych: Calm
SOB
#Worsening lower extremity edema
BNP�952, troponins�0.040
Vitals stable, patient on room air.
Concern for acute on chronic CHF, started on IV Bumex. Toprol increased to 25 mg twice daily
Etiology likely due to arrhythmia versus post cardioversion complication and CHF
Some of his symptoms like shortness of breath, tremors might also be related to anxiety from all his chronic conditions, as reported by the patient/ that were difficult to be managed at home.
Cardiology following
Echo 12/12 with EF 60%, moderate LVH
Monitor I/os, weights
#CHF, acute on chronic
Patient is not on complete GDMT except for dapagliflozin, spironolactone
His metoprolol was discontinued after cardioversion, due to his low rate
Continue dapagliflozin, spironolactone
Started IV Bumex
Cardiology following
#Bullous pemphigoid
Continue dapsone
Continue doxycycline
Continue to dupilumab
Continue leflunomide
#Paroxysmal A-fib
S/p cardioversion, went back into A-fib
Continue amiodarone
Continue apixaban
On Toprol
EP to evaluate regarding ablation
#Dysphagia
Resolved
#Chronic wounds on the left lower extremity
From bullous pemphigoid
Wound care
#Chronic anemia
Will monitor for now
#Elevated troponin likely nonischemic myocardial injury
Likely due to status post cardioversion
DVT prophylaxis�Eliquis
Full code
I spent a total of 51 minutes with the patient or on the floor. More than 50% of this time involved counseling and coordination of care.
Anticipated Discharge: 24 - 48 hours
Subjective/Interval History
-
Date of Service: December 14, 2024
Denies pain
Objective Data
-
Labs:
Laboratory Results
12/14/24
08:16
WBC 7.1
Hgb 12.6 L
Hct 38.2 L
Plt Count 239
Sodium 137
Potassium 4.3
Chloride 106
Carbon Dioxide 24
BUN 17
Creatinine 1.1
Glucose 105 H
Calcium 9.1
Total Bilirubin 2.1 H
AST 32
ALT 23
Alkaline Phosphatase 123
Vital Signs:
Vital Signs
Temp Pulse Resp BP Pulse Ox
98.3 F 90 18 116/73 96
12/14/24 12:45 12/14/24 12:45 12/14/24 12:45 12/14/24 12:45 12/14/24 12:45
I&O
12/13/24 12/14/24 12/15/24
06:59 06:59 06:59
Intake Total 1560 / 1560 1560 / 1560
Balance 1560 / 1560 1560 / 1560
[2024-12-14 16:52] VITALS: BP 94/57
[2024-12-14] MEDS: PACERONE 400 MG PO ×2 (17:03→21:12)
[2024-12-14] MEDS: DAPSONE 50 MG PO (17:04)
--- NOTE | 2024-12-14 17:50 | W.PN.UPDATE ---
Update Note
Progress Note Update
Briefly patient is a pleasant 79-year-old male with a past medical history significant for bullous pemphigoid with slow healing left lower extremity wounding, heart failure preserved ejection fraction, persistent atrial fibrillation, right bundle
branch block who presented with acute on chronic heart failure shortness of breath. In discussion with patient, he reports that he is chronically short of breath. He states that his shortness of breath began May of this year during
hospitalization but upon further discussion and questioning, he states that he has been short of breath with activity and exertion for quite some time. Regarding his atrial fibrillation, patient's heart rates have been fluctuating 70s up to 120s
during hospitalization. Patient had prior cardioversion with sabianism of sinus rhythm and in discussion with patient following cardioversion, he reported no significant change to his shortness of breath or symptoms. In review of patient's
telemetry, he remains in atrial fibrillation with heart rates at that are occasionally greater than 110 bpm. Patient is chronically on amiodarone 200 mg twice daily as an outpatient medication. For now, while inpatient, I would encourage
increasing amiodarone dosing with 400 mg 3 times daily, maintenance of anticoagulation, and continued IV diuresis. With improving heart failure, patient's heart rates also likely to improve. Would then recommend a progressive taper at the time of
discharge for his amiodarone. Regarding long-term strategies for management of atrial fibrillation, it is unclear at this time if patient has symptoms associated with his atrial fibrillation or if heart failure is his main symptom associated with
atrial fibrillation. Patient is expressing shortness of breath which is remained unchanged over the past several months and again unclear if arrhythmia is playing a role however options could include ablation or rate controlling strategies with
implantable permanent pacemaker and AV node ablation. Both of these options would require significant patching, drapes, other materials which can irritate or affect the bullous pemphigoid and therefore should not be taken lightly. Following
improvement in current hospitalization I would strongly encourage him to follow-up with an landscape artist either Dr Nagy, Dr Seals, or myself for further discussion regarding management of atrial fibrillation. Again in the meantime, I
would encourage continued rate control using amiodarone, continued anticoagulation, and treatment of the underlying heart failure. Patient verbalized understanding and agreed with this plan.
[2024-12-14 20:17] VITALS: BP 113/72
[2024-12-14 23:09] VITALS: BP 117/64
[2024-12-15] VITALS (8 sets, daily range): BP systolic 107–136; BP diastolic 70–87; PULSE 79–104; O2SAT 98; BMI 30.2
[2024-12-15 07:41] LABS: Hematocrit 38.7 % (39.0-52.0); Hemoglobin 12.6 g/dL (13.0-18.0); Mean Corp Hgb Conc. 32.6 g/dL (33.0-37.0); Mean Corpuscular Volume 95.6 fL (80.0-94.0); Nucleated Red Blood Cells % 0 % (-); Platelet Count 239 10^3/uL (130-400); Red Cell Dist. Width 17.2 % (11.5-14.5)
[2024-12-15 08:04] LABS: ALT (SGPT) 24 U/L (0-50); AST (SGOT) 34 U/L (17-59); Albumin 3.8 g/dl (3.5-5.0); Alkaline Phosphatase 119 U/L (38-126); Blood Urea Nitrogen 19 mg/dl (9-20); Calcium 9.4 mg/dl (8.4-10.2); Carbon Dioxide 24 mmol/L (22-30); Chloride 106 mmol/L (98-107); Estimated Creatinine Clearance 70 ml/min; Glucose 99 mg/dl (70-99); Potassium 4.4 mmol/L (3.5-5.1); Sodium 135 mmol/L (135-145); Total Protein 6.5 g/dl (6.3-8.2); eGFR > 60.00
[2024-12-15] MEDS: BUMEX 0.5 MG IV (09:05)
[2024-12-15] MEDS: PACERONE 400 MG PO ×3 (09:06→20:41)
[2024-12-15] MEDS: NON-FORMULARY ITEM 10 MG PO (09:07)
[2024-12-15] MEDS: TOPROL XL 25 MG PO ×2 (09:07→20:40)
[2024-12-15] MEDS: DAPSONE 25 MG PO (09:07)
[2024-12-15] MEDS: VIBRAMYCIN 100 MG PO ×2 (09:07→20:41)
[2024-12-15] MEDS: ELIQUIS 5 MG PO ×2 (09:07→20:40)
[2024-12-15] MEDS: FARXIGA 10 MG PO (09:07)
[2024-12-15] MEDS: HYDROPHOR 1 APPLIC TOPICAL (11:27)
--- NOTE | 2024-12-15 13:25 | W.PN.HOSP.TC ---
Today's Communication/Plan
-
Monitor vital signs and see plan
Continue with IV Bumex
Continue with amiodarone
Monitor renal function
Assessment / Plan
Assessment / Plan
General: No Apparent Distress
HEENT: NormoCephalic and Atraumatic
Respiratory: Clear
Cardiac: S1/S2 and Regular Rhythm; No Murmur
GI: Soft
Musculoskeletal: Edema, Left Lower Extremity and Edema, Right Lower Extremity
Skin: Warm and Other (Left lower extremity- chronic wounds, raw surface area from ruptured blisters and bullous pemphigoid, blistering lesions on the right lower extremity.)
Neuro: Awake, Alert, Oriented and AO x 3
Psych: Calm
SOB
#Worsening lower extremity edema
BNP�952, troponins�0.040
Vitals stable, patient on room air.
Concern for acute on chronic CHF, started on IV Bumex. Toprol increased to 25 mg twice daily
Etiology likely due to arrhythmia versus post cardioversion complication and CHF
Some of his symptoms like shortness of breath, tremors might also be related to anxiety from all his chronic conditions, as reported by the patient/ that were difficult to be managed at home.
Cardiology following
Echo 12/12 with EF 60%, moderate LVH
Monitor I/os, weights
#CHF, acute on chronic
Patient is not on complete GDMT except for dapagliflozin, spironolactone
His metoprolol was discontinued after cardioversion, due to his low rate
Continue dapagliflozin, spironolactone
cw IV Bumex
Cardiology following
#Bullous pemphigoid
Continue dapsone
Continue doxycycline
Continue to dupilumab
Continue leflunomide
#Paroxysmal A-fib
S/p cardioversion, went back into A-fib
Continue amiodarone
Continue apixaban
On Toprol
EP to evaluate regarding ablation, ongoing evaluation to be done outpatient. Currently increased amiodarone
#Dysphagia
Resolved
#Chronic wounds on the left lower extremity
From bullous pemphigoid
Wound care
#Chronic anemia
Will monitor for now
#Elevated troponin likely nonischemic myocardial injury
Likely due to status post cardioversion
DVT prophylaxis�Eliquis
Full code
I spent a total of 52 minutes with the patient or on the floor. More than 50% of this time involved counseling and coordination of care.
Anticipated Discharge: 24 - 48 hours
Subjective/Interval History
-
Date of Service: December 15, 2024
denies pain
Objective Data
-
Labs:
Laboratory Results
12/15/24
07:11
WBC 7.7
Hgb 12.6 L
Hct 38.7 L
Plt Count 239
Sodium 135
Potassium 4.4
Chloride 106
Carbon Dioxide 24
BUN 19
Creatinine 1.0
Glucose 99
Calcium 9.4
Total Bilirubin 2.3 H
AST 34
ALT 24
Alkaline Phosphatase 119
Vital Signs:
Vital Signs
Temp Pulse Resp BP Pulse Ox
98.2 F 82 16 132/86 97
12/15/24 11:02 12/15/24 11:02 12/15/24 11:02 12/15/24 11:02 12/15/24 11:02
I&O
12/14/24 12/15/24 12/16/24
06:59 06:59 06:59
Intake Total 1560 / 1560 840 / 840
Output Total 700 / 700
Balance 1560 / 1560 140 / 140
--- NOTE | 2024-12-15 13:37 | W.PN.CARDCBS ---
Today's Communication / Plan
-
Continue rate control strategy for his atrial fibrillation presently.
Toprol was increased to 25 mg twice a day 12/14/2024.
Monitor heart rate response with previous bradycardia
Appreciate EP input. Patient is undergoing amiodarone load with 400 mg p.o. 3 times daily
Hopefully with improved rate control, he can follow-up as an outpatient to discuss consideration for possible PVI versus ablate and pacing strategy.
They are very hesitant to pursue a second cardioversion due to his skin issues with his bullous pemphigoid.
Continue gentle IV diuresis with Bumex. He was not taking a diuretic prior to admission
Continue medical therapy of non-PR troponin, peak 0.05
Continue treatment of lower extremity wound and bullous pemphigoid
Impression / Plan
-
PCP: Dr. Ajit Houston
Cardiology: Dr. Bach
Impression:
Admitted with SOB and possible acute HF 12/11/2024
Elevated troponin
Possible acute HFpEF
Paroxysmal to persistent atrial fibrillation
s/p successful CV 12/08/2024
Appears to be back in A-fib by ECG 12/12/2024
Chronic Eliquis OAC
Bullous pemphigoid with slowly healing LLE wound
Echo 12/12/2024: EF 60% with mild AI, mild MR with PA pressure 25
Plan:
Continue rate control strategy for his atrial fibrillation presently.
Toprol was increased to 25 mg twice a day 12/14/2024.
Monitor heart rate response with previous bradycardia
Appreciate EP input. Patient is undergoing amiodarone load with 400 mg p.o. 3 times daily
Hopefully with improved rate control, he can follow-up as an outpatient to discuss consideration for possible PVI versus ablate and pacing strategy.
They are very hesitant to pursue a second cardioversion due to his skin issues with his bullous pemphigoid.
Continue gentle IV diuresis with Bumex. He was not taking a diuretic prior to admission
Continue medical therapy of non-PR troponin, peak 0.05
Continue treatment of lower extremity wound and bullous pemphigoid
Discussed with his and family at bedside.
HPI: Patient came to the ER with complaints of increasing SOB and was admitted with acute HF with cardiology consulted. Patient just had a successful outpatient CV for paroxysmal A-fib with adventism of SR on 12/08/2024. Patient had increased LE
edema when he was seen in the cardiology office on 12/05/2024. Patient is not chronically on a diuretic. Patient says that despite adventism of sinus rhythm he never had a symptomatic improvement and then started with shaking type chills and
vomiting this past weekend and fatigue. He came to the ER with ongoing symptoms and the proBNP was only 952 without obvious CHF on CXR, but LE edema persists. No previous echo.
Progress Note - Pastry Artist
Subjective
Date of Service: December 15, 2024
Pt seen and examined. No complaints. No chest pain. Still with dyspnea on exertion
Objective
Labs:
12/15/24 07:11
12/15/24 07:11
Labs
Hgb 12.6 g/dL (13.0-18.0) L 12/15/24 07:11
Hct 38.7 % (39.0-52.0) L 12/15/24 07:11
Plt Count 239 10^3/uL (130-400) 12/15/24 07:11
Sodium 135 mmol/L (135-145) 12/15/24 07:11
Potassium 4.4 mmol/L (3.5-5.1) 12/15/24 07:11
BUN 19 mg/dl (9-20) 12/15/24 07:11
Creatinine 1.0 mg/dL (0.7-1.3) 12/15/24 07:11
Glucose 99 mg/dl (70-99) 12/15/24 07:11
Troponins
12/13/24
08:27
Troponin I 0.038 H*
Vital Signs and I&O:
Vital Signs
Temp Pulse Resp BP Pulse Ox
98.2 F 82 16 132/86 97
12/15/24 11:02 12/15/24 11:02 12/15/24 11:02 12/15/24 11:02 12/15/24 11:02
Vital Signs
Temp Pulse Resp BP Pulse Ox
98.2 F 82 16 132/86 97
12/15/24 11:02 12/15/24 11:02 12/15/24 11:02 12/15/24 11:02 12/15/24 11:02
Intake & Output
12/13/24 12/14/24 12/15/24 12/16/24
06:59 06:59 06:59 06:59
Intake Total 1560 / 1560 1560 / 1560 840 / 840
Output Total 700 / 700
Balance 1560 / 1560 1560 / 1560 140 / 140
Physical Exam
Physical Exam
General: No acute distress, AAOX3
Neck: Negative JVD
Heart: Irregular rate, Negative S3 positive S1/S2, Negative S4, No murmur
Lungs: CTA b/l, negative wheezes/rales/rhonchi
Abd: Positive BS, NT/ND, neg rebound/rigidity/guarding
Ext: Negative cyanosis/clubbing/bilateral 1-2+ edema with multiple skin excoriations, dressing clear dry
Neuro: nonfocal
--- NOTE | 2024-12-15 14:07 | CM ---
Chart reviewed and physical therapy reached out to protective services case worker and they are recommending skilled placement, skilled options reviewed with patient and spouse and they have selected [facility], referral sent to [facility].
Plan; Skilled placement when stable.
[2024-12-15] MEDS: DAPSONE 50 MG PO (17:49)
--- NOTE | 2024-12-15 19:30 | PTCARENOTE ---
Pt refused bed and chair alarm despite education. Steady on feet.
[2024-12-16 03:13] VITALS: BP 125/76
[2024-12-16 07:43] VITALS: BP 132/74
[2024-12-16] MEDS: ELIQUIS 5 MG PO ×2 (09:00→20:43)
[2024-12-16] MEDS: VIBRAMYCIN 100 MG PO ×2 (09:00→20:43)
[2024-12-16] MEDS: PACERONE 400 MG PO (09:00)
[2024-12-16] MEDS: NON-FORMULARY ITEM 10 MG PO (09:00)
[2024-12-16] MEDS: DAPSONE 25 MG PO (09:00)
[2024-12-16] MEDS: TOPROL XL 25 MG PO ×2 (09:00→20:43)
[2024-12-16] MEDS: BUMEX 0.5 MG IV (09:00)
[2024-12-16] MEDS: FARXIGA 10 MG PO (09:00)
[2024-12-16] MEDS: HYDROPHOR 1 APPLIC TOPICAL (09:01)
[2024-12-16 09:11] LABS: Hematocrit 37.4 % (39.0-52.0); Hemoglobin 11.9 g/dL (13.0-18.0); Mean Corp Hgb Conc. 31.8 g/dL (33.0-37.0); Mean Corpuscular Volume 99.2 fL (80.0-94.0); Nucleated Red Blood Cells % 0 % (-); Platelet Count 231 10^3/uL (130-400); Red Cell Dist. Width 17.2 % (11.5-14.5)
[2024-12-16 09:34] LABS: ALT (SGPT) 24 U/L (0-50); AST (SGOT) 36 U/L (17-59); Albumin 3.8 g/dl (3.5-5.0); Alkaline Phosphatase 116 U/L (38-126); Blood Urea Nitrogen 22 mg/dl (9-20); Calcium 9.0 mg/dl (8.4-10.2); Carbon Dioxide 24 mmol/L (22-30); Chloride 106 mmol/L (98-107); Estimated Creatinine Clearance 63 ml/min; Glucose 109 mg/dl (70-99); Potassium 4.5 mmol/L (3.5-5.1); Sodium 135 mmol/L (135-145); Total Protein 6.5 g/dl (6.3-8.2); eGFR > 60.00
[2024-12-16 11:16] VITALS: BP 112/69
--- NOTE | 2024-12-16 13:00 | W.PN.HOSP.TC ---
Today's Communication/Plan
-
monitor vitals
see plan
bumex
on amio and metoprolol
pt rec SNF
Assessment / Plan
Assessment / Plan
General: No Apparent Distress
HEENT: NormoCephalic and Atraumatic
Respiratory: Clear
Cardiac: S1/S2 and Regular Rhythm; No Murmur
GI: Soft
Musculoskeletal: Edema, Left Lower Extremity and Edema, Right Lower Extremity
Skin: Warm and Other (Left lower extremity- chronic wounds, raw surface area from ruptured blisters and bullous pemphigoid, blistering lesions on the right lower extremity.)
Neuro: Awake, Alert, Oriented and AO x 3
Psych: Calm
SOB
#Worsening lower extremity edema
BNP�952, troponins�0.040
Vitals stable, patient on room air.
Concern for acute on chronic CHF, started on IV Bumex. Toprol increased to 25 mg twice daily
Etiology likely due to arrhythmia versus post cardioversion complication and CHF
Some of his symptoms like shortness of breath, tremors might also be related to anxiety from all his chronic conditions, as reported by the patient/ that were difficult to be managed at home.
Cardiology following
Echo 12/12 with EF 60%, moderate LVH
Monitor I/os, weights
#CHF, acute on chronic
Patient is not on complete GDMT except for dapagliflozin, spironolactone
His metoprolol was discontinued after cardioversion, due to his low rate
Continue dapagliflozin, spironolactone
cw IV Bumex per cardiology
Cardiology following
#Bullous pemphigoid
Continue dapsone
Continue doxycycline
Continue to dupilumab
Continue leflunomide
#Paroxysmal A-fib
S/p cardioversion, went back into A-fib
Continue amiodarone
Continue apixaban
On Toprol
EP to evaluate regarding ablation, ongoing evaluation to be done outpatient. Currently increased amiodarone
#Dysphagia
Resolved
#Chronic wounds on the left lower extremity
From bullous pemphigoid
Wound care
#Chronic anemia
Will monitor for now
#Elevated troponin likely nonischemic myocardial injury
Likely due to status post cardioversion
recent skin surgery
looked at sutures on left elbow and skin still not healed completely, advised patient to follow-up outpatient or get removed at rehab. If wound heals while he is here then we will remove it
DVT prophylaxis�Eliquis
Full code
Anticipated Discharge: Within 24 hours
Subjective/Interval History
-
Date of Service: December 16, 2024
Denies pain
Objective Data
-
Labs:
Laboratory Results
12/16/24
08:26
WBC 6.4
Hgb 11.9 L
Hct 37.4 L
Plt Count 231
Sodium 135
Potassium 4.5
Chloride 106
Carbon Dioxide 24
BUN 22 H
Creatinine 1.1
Glucose 109 H
Calcium 9.0
Total Bilirubin 2.3 H
AST 36
ALT 24
Alkaline Phosphatase 116
Vital Signs:
Vital Signs
Temp Pulse Resp BP Pulse Ox
98.3 F 74 18 112/69 98
12/16/24 11:16 12/16/24 11:16 12/16/24 11:16 12/16/24 11:16 12/16/24 11:16
I&O
12/15/24 12/16/24 12/17/24
06:59 06:59 06:59
Intake Total 840 / 840 1440 / 1440
Output Total 700 / 700 1115 / 1115
Balance 140 / 140 325 / 325
[2024-12-16 15:08] VITALS: BP 117/86
--- NOTE | 2024-12-16 16:35 | CM ---
Chart reviewed and still waiting on final decision and any further procedures or testing, patient has been accepted at the [facility] bed is available tomorrow, patient's spouse to bring in any injectables.
[facility]
Report [phone]
--- NOTE | 2024-12-16 17:21 | W.PN.CARDCBS ---
Today's Communication / Plan
-
Ventricular rates are improved. Continue Toprol 25 mg p.o. twice daily and amiodarone 200 mg p.o. twice daily.
Continue Bumex 0.5 mg IV daily and would convert to 0.5 mg po daily as an outpatient
Blood pressure is overall stable. Would remain off spironolactone for now.
Continue treatment for bullous pemphigoid.
Stable to go to SNF from cardiology standpoint. Will arrange follow-up
Impression / Plan
-
PCP: Dr. Ajit Houston
Cardiology: Dr. Bach
Impression:
Admitted with SOB and possible acute HF 12/11/2024
Elevated troponin
Possible acute HFpEF
Paroxysmal to persistent atrial fibrillation
s/p successful CV 12/08/2024
Appears to be back in A-fib by ECG 12/12/2024
Chronic Eliquis OAC
Bullous pemphigoid with slowly healing LLE wound
Echo 12/12/2024: EF 60% with mild AI, mild MR with PA pressure 25
Plan:
Continue rate control strategy for his atrial fibrillation presently.
Toprol was increased to 25 mg twice a day 12/14/2024. Ventricular rates are much improved. Continue amiodarone 200 mg p.o. twice daily for 1 month then 200 mg daily
Hopefully with improved rate control, he can follow-up as an outpatient to discuss consideration for possible PVI versus ablate and pacing strategy. This would be risky though with his history of bullous pemphigoid
They are very hesitant to pursue a second cardioversion due to his skin issues with his bullous pemphigoid.
Continue gentle IV diuresis with Bumex. Would discharge to SNF on 0.5 mg Bumex daily.
Continue medical therapy of non-PA troponin, peak 0.05
Continue treatment of lower extremity wound and bullous pemphigoid
Discussed with his and family at bedside.
Case was discussed with Dr. Bach who is his outpatient system development manager.
HPI: Patient came to the ER with complaints of increasing SOB and was admitted with acute HF with cardiology consulted. Patient just had a successful outpatient CV for paroxysmal A-fib with adventism of SR on 12/08/2024. Patient had increased LE
edema when he was seen in the cardiology office on 12/05/2024. Patient is not chronically on a diuretic. Patient says that despite adventism of sinus rhythm he never had a symptomatic improvement and then started with shaking type chills and
vomiting this past weekend and fatigue. He came to the ER with ongoing symptoms and the proBNP was only 952 without obvious CHF on CXR, but LE edema persists. No previous echo.
Progress Note - Cleaning Manager
Subjective
Date of Service: December 16, 2024
Feeling better with improved ventricular rates. Still with fatigue.
Objective
Labs:
12/16/24 08:26
12/16/24 08:26
Labs
Hgb 11.9 g/dL (13.0-18.0) L 12/16/24 08:26
Hct 37.4 % (39.0-52.0) L 12/16/24 08:26
Plt Count 231 10^3/uL (130-400) 12/16/24 08:26
Sodium 135 mmol/L (135-145) 12/16/24 08:26
Potassium 4.5 mmol/L (3.5-5.1) 12/16/24 08:26
BUN 22 mg/dl (9-20) H 12/16/24 08:26
Creatinine 1.1 mg/dL (0.7-1.3) 12/16/24 08:26
Glucose 109 mg/dl (70-99) H 12/16/24 08:26
Vital Signs and I&O:
Vital Signs
Temp Pulse Resp BP Pulse Ox
97.6 F 77 17 117/86 97
12/16/24 15:08 12/16/24 15:08 12/16/24 15:08 12/16/24 15:08 12/16/24 15:08
Vital Signs
Temp Pulse Resp BP Pulse Ox
97.6 F 77 17 117/86 97
12/16/24 15:08 12/16/24 15:08 12/16/24 15:08 12/16/24 15:08 12/16/24 15:08
Intake & Output
12/14/24 12/15/24 12/16/24 12/17/24
06:59 06:59 06:59 06:59
Intake Total 1560 / 1560 840 / 840 1440 / 1440 540 / 540
Output Total 700 / 700 1115 / 1115
Balance 1560 / 1560 140 / 140 325 / 325 540 / 540
Physical Exam
Physical Exam
GEN: No distress, awake, Ox3
HEENT: supple, anicteric, mmm
LUNGS: CTA, no wheezes/rales
CV: irreg, S1/S2, 1/6 syst LSB, no gallop
ABD: soft, BS+, NT/ND
EXT: No edema
NEURO: Gross non-focal
SKIN: Diffuse rash on extremities and chest.
[2024-12-16] MEDS: DAPSONE 50 MG PO (17:38)
[2024-12-16 18:58] VITALS: BP 107/60
[2024-12-16] MEDS: PACERONE 200 MG PO (20:43)
[2024-12-16 23:00] VITALS: BP 133/77
[2024-12-17 03:00] VITALS: BP 115/56
[2024-12-17 06:00] VITALS: BMI 30.2
[2024-12-17 06:46] LABS: Hematocrit 34.9 % (39.0-52.0); Hemoglobin 11.6 g/dL (13.0-18.0); Mean Corp Hgb Conc. 33.2 g/dL (33.0-37.0); Mean Corpuscular Volume 95.4 fL (80.0-94.0); Nucleated Red Blood Cells % 0 % (-); Platelet Count 224 10^3/uL (130-400); Red Cell Dist. Width 16.7 % (11.5-14.5)
[2024-12-17 07:03] VITALS: BP 108/65
[2024-12-17 07:15] LABS: ALT (SGPT) 24 U/L (0-50); AST (SGOT) 40 U/L (17-59); Albumin 3.6 g/dl (3.5-5.0); Alkaline Phosphatase 101 U/L (38-126); Blood Urea Nitrogen 19 mg/dl (9-20); Calcium 9.1 mg/dl (8.4-10.2); Carbon Dioxide 23 mmol/L (22-30); Chloride 106 mmol/L (98-107); Estimated Creatinine Clearance 70 ml/min; Glucose 91 mg/dl (70-99); Potassium 4.6 mmol/L (3.5-5.1); Sodium 135 mmol/L (135-145); Total Protein 6.4 g/dl (6.3-8.2); eGFR > 60.00
[2024-12-17] MEDS: BUMEX 0.5 MG IV (09:41)
[2024-12-17] MEDS: ELIQUIS 5 MG PO (09:42)
[2024-12-17] MEDS: FARXIGA 10 MG PO (09:42)
[2024-12-17] MEDS: DAPSONE 25 MG PO (09:42)
[2024-12-17] MEDS: NON-FORMULARY ITEM 10 MG PO (09:43)
[2024-12-17] MEDS: HYDROPHOR 1 APPLIC TOPICAL (09:43)
[2024-12-17] MEDS: PACERONE 200 MG PO (09:44)
[2024-12-17] MEDS: TOPROL XL 25 MG PO (09:44)
[2024-12-17] MEDS: VIBRAMYCIN 100 MG PO (09:44)
[2024-12-17 11:27] VITALS: BP 104/56
--- NOTE | 2024-12-17 11:46 | W.PN.HOSP.TC ---
Today's Communication/Plan
-
Monitor vitals
See plan
Discharge today to rehab
Continue Bumex, amiodarone
Discussed with spouse
Time of discharge 38 minutes
Assessment / Plan
Assessment / Plan
General: No Apparent Distress
HEENT: NormoCephalic and Atraumatic
Respiratory: Clear
Cardiac: S1/S2 and Regular Rhythm; No Murmur
GI: Soft
Musculoskeletal: Edema, Left Lower Extremity and Edema, Right Lower Extremity
Skin: Warm and Other (Left lower extremity- chronic wounds, raw surface area from ruptured blisters and bullous pemphigoid, blistering lesions on the right lower extremity.)
Neuro: Awake, Alert, Oriented and AO x 3
Psych: Calm
SOB
#Worsening lower extremity edema
BNP�952, troponins�0.040
Vitals stable, patient on room air.
Concern for acute on chronic CHF, started on IV Bumex. Toprol increased to 25 mg twice daily
Etiology likely due to arrhythmia versus post cardioversion complication and CHF
Some of his symptoms like shortness of breath, tremors might also be related to anxiety from all his chronic conditions, as reported by the patient/ that were difficult to be managed at home.
Cardiology following
Echo 12/12 with EF 60%, moderate LVH
Monitor I/os, weights
#CHF, acute on chronic
Patient is not on complete GDMT except for dapagliflozin, spironolactone
His metoprolol was discontinued after cardioversion, due to his low rate
Continue dapagliflozin. Spironolactone is on hold
Change to p.o. Bumex daily
Cardiology following
#Bullous pemphigoid
Continue dapsone
Continue doxycycline
Continue to dupilumab
Continue leflunomide
#Paroxysmal A-fib
S/p cardioversion, went back into A-fib
Continue amiodarone; loaded while he was here
Continue apixaban
On Toprol
EP to evaluate regarding ablation, ongoing evaluation to be done outpatient. Currently increased amiodarone
#Dysphagia
Resolved
#Chronic wounds on the left lower extremity
From bullous pemphigoid
Wound care
#Chronic anemia
Will monitor for now
#Elevated troponin likely nonischemic myocardial injury
Likely due to status post cardioversion
recent skin surgery
looked at sutures on left elbow and skin still not healed completely, advised patient to follow-up outpatient or get removed at rehab. If wound heals while he is here then we will remove it
DVT prophylaxis�Eliquis
Full code
Anticipated Discharge: Today
Subjective/Interval History
-
Date of Service: December 17, 2024
denies pain
Objective Data
-
Labs:
Laboratory Results
12/17/24
06:04
WBC 7.0
Hgb 11.6 L
Hct 34.9 L
Plt Count 224
Sodium 135
Potassium 4.6
Chloride 106
Carbon Dioxide 23
BUN 19
Creatinine 1.0
Glucose 91
Calcium 9.1
Total Bilirubin 1.8 H
AST 40
ALT 24
Alkaline Phosphatase 101
Vital Signs:
Vital Signs
Temp Pulse Resp BP Pulse Ox
98.3 F 70 16 104/56 96
12/17/24 11:27 12/17/24 11:27 12/17/24 11:27 12/17/24 11:27 12/17/24 11:27
I&O
12/16/24 12/17/24 12/18/24
06:59 06:59 06:59
Intake Total 1440 / 1440 780 / 780
Output Total 1115 / 1115
Balance 325 / 325 780 / 780
--- NOTE | 2024-12-17 11:54 | W.DCSUMMARY ---
Discharge Summary
Discharge Data
Date of Admission: 12/11/24
Date of Discharge: 12/17/24
-
Pending Results: No
Hospital Course
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
congestive heart failure exacerbation and atrial fibrillation. Patient was seen by cardiology throughout hospitalization. For his heart failure he was started on IV Bumex which was later transitioned to p.o. Bumex prior to discharge. For his
atrial fibrillation his amiodarone was initially increased to load him up and then he was also started on increased dose of Toprol. He was still in A-fib prior to discharge and cardiology instructed him to follow-up outpatient soon for further
management with possible ablation. Patient was seen by physical therapy who recommended SNF. Once his symptoms continue to improve, he was then discharged to rehab with instructions to follow-up with all the physicians outpatient.
Discharge Plan
-
Patient Disposition: [facility]
Discharge Diagnosis/Procedures: Atrial fibrillation
Acute on chronic congestive heart failure
History of bullous pemphigoid
Diet: As tolerated and Low Cholesterol
Activity: With assistance and As tolerated
Driving Restrictions: As prior to admission
Bathing Restrictions: None
Blood Work: BMP in 1 week, results to Dr. Bach
Specialty Instructions: Weigh Daily- Call MD for wt gain/loss 3 lbs overnight/5 lbs in 1 week
Activity Restrictions/Additional Instructions:
Wound Care Instructions
Clean with Vashe, apply Xeroform to blisters on back of leg and anterior leg weepy area, ABD pads and kerlix change daily.
Moisturized legs with mineral oil daily and apply to skin tears on chest and back daily.
compression knee high as tolerated
leg elevation when sitting.
Follow up with Dr. Lynn at [facility] as scheduled.
Instructions: *PCP/Other Senior Integration Developer Heart Failure Instructions
Referrals:
Ajit Houston MD [Family Provider, Family Practice] - in less than 1 week
Tony Seals MD [Active, Cardiology]
Lewis Bach DO [Affiliate, Cardiology] - 01/16/25 11:15 am
Referral Note: Please call with questions.
Prescriptions:
New
metoprolol succinate 25 mg Tablet Extended Release 24 Hr
25 mg PO BID Qty: 0 0RF
Aquaphor Healing 41 % Ointment
1 applic topical DAILY Qty: 0 0RF
bumetanide 0.5 mg tablet
0.5 mg PO DAILY Qty: 30 0RF
Continued
amiodarone 200 mg Tablet
200 mg PO BID
leflunomide 10 mg Tablet
10 mg PO DAILY
dapsone 25 mg Tablet
25 mg PO DAILY
dapsone 25 mg Tablet
50 mg PO QPM
doxycycline hyclate 100 mg Tablet
100 mg PO BID
Eliquis 5 mg Tablet
5 mg PO BID
dapagliflozin propanediol [Farxiga] 10 mg Tablet
10 mg PO DAILY
dupilumab 300 mg/2 mL Pen Injector
300 mg SC QWEEK
Held
spironolactone 25 mg Tablet
25 mg PO DAILY
Hold Instructions: restart when ok with cardiology
Discontinued
metoprolol succinate [Toprol XL] 50 mg Tablet Extended Release 24 Hr
50 mg PO DAILY
Discharge Orders:
Discharge Patient (As Directed); Ordered 12/17/24
Ordered By: Deny Busby
Discharge Date and Time
Discharge Date/Time: 12/17/24 13:30
Print Language: LIBYAN
--- NOTE | 2024-12-17 14:22 | CM ---
F/U: Patient is ready to go to [place] today. Found the Report Number:
Report: #[id number] to greg Crespo
IMM completed and family taking the patient. PLAN: To Assisted Living today.
== END 2024-12-17 13:30 | disposition home or self-care (01) | DRG 291 ==
LOC: 4 WEST ACU 17:03
PROVIDERS: Physician Assistant Medical; Student in an Organized Health Care Education/Training Program; ADMITTING PHYSICIAN Hospitalist; ATTENDING PHYSICIAN Internal Medicine; CONSULT PHYSICIAN Internal Medicine Cardiovascular Disease; EMERGENCY PHYSICIAN Emergency Medicine; FAMILY PHYSICIAN Family Medicine
DX: I11.0 Hypertensive heart disease with heart failure (principal); I50.33 Acute on chronic diastolic (congestive) heart failure; L12.0 Bullous pemphigoid; I48.0 Paroxysmal atrial fibrillation; D64.9 Anemia, unspecified; R13.10 Dysphagia, unspecified; I5A Non-ischemic myocardial injury (non-traumatic); I87.8 Other specified disorders of veins; E11.9 Type 2 diabetes mellitus without complications; F41.9 Anxiety disorder, unspecified; E78.5 Hyperlipidemia, unspecified; Z79.01 Long term (current) use of anticoagulants; Z79.899 Other long term (current) drug therapy; Z86.711 Personal history of pulmonary embolism; Z87.891 Personal history of nicotine dependence
CPT/HCPCS: 71046; 80053; 83690; 83880; 84484; 85025; 93005; 93306; 97163; 97167; 97530; 99285